=== PATIENT | female | born 1980 | race Caucasian/White ===

== ENCOUNTER 2016-11-23 17:43 | Emergency (ER) | payer OTHER ==
[~2016-11-23] VITALS: Ht 170.2 cm; Wt 56.5 kg
[~2016-11-23 17:43] MED LIST: CIPR500T4 PO; DICY1TAB26 PO; METR-1 PO
[2016-11-23 17:44] VITALS: BP 139/63; PULSE 97; RESP 20; TEMP 98.6; O2SAT 98
--- NOTE | 2016-11-23 17:55 | PD ---
Physical Exam Date Seen by Provider: Nov 23, 2016 Time Seen by Provider: 17:52 Data Data Last Documented VS Vital Signs Date Time Temp Pulse Resp B/P (MAP) Pulse Ox O2 Delivery O2 Flow Rate FiO2 11/23/16 17:44 98.6 97 20 139/63 (88) 98 Room Air MDM Supervised Visit with [facility]: No Narrative Course 36 YO F requesting detox from alcohol. Patient endorses daily drinking "4 beers." Patient states that she has been on a 6 day "fatima", last drink 1 hour ago. Endorses depression. Endorses passive SI. Vitals reviewed. Patient seen in triage, awaiting bed placement. Darcy Singer Nov 23, 2016 17:55
[2016-11-23] MEDS ORDERED: SERO200T PO (22:10)
== END 2016-11-23 19:39 | disposition left against medical advice (07) ==
LOC: NED 17:43
DX: F10.10 Alcohol abuse, uncomplicated (principal)
CPT/HCPCS: 99281

== ENCOUNTER 2016-11-23 21:20 | Emergency (ER) | payer OTHER ==
[~2016-11-23] VITALS: Ht 170.2 cm; Wt 58.0 kg
[2016-11-23 21:33] VITALS: BP 122/64; PULSE 96; RESP 16; TEMP 98.1; O2SAT 98
[2016-11-23] MEDS ORDERED: SERO200T PO (22:10)
--- NOTE | 2016-11-23 22:24 | PD ---
HPI Chief Complaint: Medical Clearance Time Seen by Provider: 22:13 Travel History International Travel<30 days: No Contact w/Intl Traveler<30days: No Traveled to known affect area: No History of Present Illness HPI The patient is a 36-year-old female alcoholic that went to [facility] today but they would not take her until she was medically cleared. When she is intoxicated she does get depressed but at this time she does not want to harm herself or others. She is accompanied by her mother. She drinks about 18 beers daily. The patient has not eaten in 3 days, her diet is poor. The last time she vomited was Tuesday and she vomited some blood. She denies any fever, nausea or vomiting since. She denies any melanotic or bloody stools. She smokes one pack a day and has not had a chest x-ray in over 2 years. She does have a history of pancreatitis but denies any abdominal pain at this time. She denies any history of hepatitis or liver disease. PFSH Past Medical History Bipolar Disorder: Yes Depression: Yes Diminished Hearing: No Tetanus Vaccination: > 5 Years Influenza Vaccination: No ?: Not LMP: 11/11/16 : 4 Para: 0 Miscarriage: 2 : 2 Past Surgical History Surgical History: No Previous Surgery Social History Alcohol Use: Yes (daily) Tobacco Use: Yes (1 ppd) Substance Use: No (denies) Allergies-Medications (Allergen,Severity, Reaction): Coded Allergies: No Known Allergies (Unverified , 11/23/16) Reported Meds & Prescriptions Reported Meds & Active Scripts Active Reported Seroquel (Quetiapine Fumarate) 200 Mg Tab 200 Mg PO HS Review of Systems Except as stated in HPI: all other systems reviewed are Neg Physical Exam Narrative GENERAL: The patient is alert, oriented 3, does not appear clinically intoxicated and is cooperative, smells only slightly of beer in no apparent distress. Her pulse rate is 96 but the rest of her vital signs are normal. SKIN: Focused skin assessment warm/dry. Old wrist slash fitch are present on the volar left wrist but there are no needle tracks and no other skin rash present. HEAD: Atraumatic. Normocephalic. EYES: Pupils equal and round. No scleral icterus. No injection or drainage. ENT: No nasal bleeding or discharge. Mucous membranes pink and moist. Tympanic membranes are clear. NECK: Trachea midline. No JVD. There is no meningismus present. CARDIOVASCULAR: Regular rate and rhythm. No murmur appreciated. RESPIRATORY: No accessory muscle use. Clear to auscultation. Breath sounds equal bilaterally. GASTROINTESTINAL: Abdomen soft, non-tender, nondistended. Hepatic and splenic margins not palpable. MUSCULOSKELETAL: No obvious deformities. No clubbing. No cyanosis. No edema. NEUROLOGICAL: Awake and alert. No obvious cranial nerve deficits. Motor grossly within normal limits. Normal speech. PSYCHIATRIC: Appropriate mood and affect; insight and judgment normal. Data Data Last Documented VS Vital Signs Date Time Temp Pulse Resp B/P (MAP) Pulse Ox O2 Delivery O2 Flow Rate FiO2 11/23/16 22:04 96 16 11/23/16 21:33 98.1 122/64 (83) 98 Orders Orders Complete Blood Count With Diff (11/23/16 22:13) Comprehensive Metabolic Panel (11/23/16 22:13) Lipase (11/23/16 22:13) Magnesium (Mg) (11/23/16 22:13) Chest, Pa & Lat (11/23/16 22:13) Alcohol (Ethanol) (11/23/16 22:13) Beta Hcg (Quant/Titer) (11/23/16 22:13) Ed Urine Pregnancytest Poc (11/23/16 22:36) Labs Laboratory Tests Test 11/23/16 22:30 White Blood Count 8.2 TH/MM3 Red Blood Count 4.62 MIL/MM3 Hemoglobin 14.6 GM/DL Hematocrit 43.3 % Mean Corpuscular Volume 93.8 FL Mean Corpuscular Hemoglobin 31.5 PG Mean Corpuscular Hemoglobin Concent 33.6 % Red Cell Distribution Width 13.1 % Platelet Count 376 TH/MM3 Mean Platelet Volume 6.7 FL Neutrophils (%) (Auto) 70.8 % Lymphocytes (%) (Auto) 22.1 % Monocytes (%) (Auto) 5.7 % Eosinophils (%) (Auto) 0.6 % Basophils (%) (Auto) 0.8 % Neutrophils # (Auto) 5.8 TH/MM3 Lymphocytes # (Auto) 1.8 TH/MM3 Monocytes # (Auto) 0.5 TH/MM3 Eosinophils # (Auto) 0.0 TH/MM3 Basophils # (Auto) 0.1 TH/MM3 CBC Comment DIFF FINAL Differential Comment Blood Urea Nitrogen 8 MG/DL Creatinine 0.70 MG/DL Random Glucose 64 MG/DL Total Protein 8.6 GM/DL Albumin 4.3 GM/DL Calcium Level 8.5 MG/DL Magnesium Level 2.3 MG/DL Alkaline Phosphatase 84 U/L Aspartate Amino Transf (AST/SGOT) 126 U/L Alanine Aminotransferase (ALT/SGPT) 78 U/L Total Bilirubin 0.5 MG/DL Sodium Level 134 MEQ/L Potassium Level 3.8 MEQ/L Chloride Level 95 MEQ/L Carbon Dioxide Level 22.6 MEQ/L Anion Gap 16 MEQ/L Estimat Glomerular Filtration Rate 94 ML/MIN Lipase 219 U/L Human Chorionic Gonadotropin, Quant LESS THAN 1 MIU/ML Ethyl Alcohol Level 230 MG/DL MDM Medical Decision Making Medical Screen Exam Complete: Yes Emergency Medical Condition: Yes Medical Record Reviewed: Yes Interpretation(s) The CBC is normal. The complete metabolic profile shows a glucose of 64, total protein of 8.6, GOT of 126, GPT of 78 with sodium 134 and anion gap of 16 but is otherwise normal. The beta-hCG is less than 1, she is not . The alcohol level is 230. Lipase is normal. The chest x-ray is normal. Differential Diagnosis Alcohol abuse, suicidal depression, electrolyte disorder, cirrhosis, alcohol hepatitis, other hepatitis, , anemia, alcohol withdrawal Narrative Course The patient has alcohol abuse. Her alcohol level is still elevated at 2:30 but she does not appear clinically intoxicated. She is medically cleared at this time. She also has hypoglycemia due to her poor diet and was given orange juice. She drank the orange juice and Gatorade. She is also given a meal to eat. Diagnosis Primary Impression: Alcohol abuse Additional Impression: Hypoglycemia Additional Instructions: As we discussed, discontinue alcohol before destroyed your liver. Follow-up with [facility]. Med/Other Pt SpecificInfo: No Change to Meds Disposition: 01 DISCHARGE HOME Condition: Stable Damaso Laird MD Nov 23, 2016 22:24
[2016-11-23 22:44] LABS: AUTOMATED NEUTROPHIL # 5.8 TH/MM3 (1.8-7.7); BASOPHIL # 0.1 TH/MM3 (0-0.2); BASOPHIL % 0.8 % (0.0-2.0); EOSINOPHIL % 0.6 % (0.0-4.0); HEMATOCRIT 43.3 % (35.0-46.0); HEMO FLAGS DIFF FINAL; LYMPH % 22.1 % (9.0-44.0); LYMPHOCYTE # 1.8 TH/MM3 (1.0-4.8); MEAN CELL VOLUME 93.8 FL (80.0-100.0); MEAN CORPUSCULAR HEMOGLOBIN 31.5 PG (27.0-34.0); MEAN CORPUSCULAR HGB CONC 33.6 % (32.0-36.0); MONO % 5.7 % (0.0-8.0); NEUT % 70.8 % (16.0-70.0); PLATELET COUNT 376 TH/MM3 (150-450); RED BLOOD COUNT 4.62 MIL/MM3 (4.00-5.30); RED CELL DISTRIBUTION WIDTH 13.1 % (11.6-17.2); WHITE BLOOD COUNT 8.2 TH/MM3 (4.0-11.0)
[2016-11-23 22:51] LABS: CHLORIDE 95 MEQ/L (98-107); POTASSIUM 3.8 MEQ/L (3.5-5.1); SODIUM (NA) 134 MEQ/L (136-145)
--- NOTE | 2016-11-23 22:52 | RADRPT ---
EXAM DATE/TIME: 11/23/2016 22:17 [place] COMPARISON: No previous studies available for comparison. INDICATIONS : Evaluate for pneumonia, pneumothorax, or other communicable disease. MEDICAL HISTORY : None. SURGICAL HISTORY : None. ENCOUNTER: Initial ACUITY: 1 day PAIN SCORE: 0/10 LOCATION: Bilateral chest FINDINGS: PA and lateral views of the chest demonstrate a normal-sized cardiac silhouette. There is no effusion , consolidation, or pneumothorax. The bones and soft tissues demonstrate no acute abnormality. CONCLUSION: Normal chest x-ray. Heraclio Paris MD on November 23, 2016 at 22:50 Board Certified Radiologist. This report was verified electronically.
[2016-11-23 22:57] LABS: ANION GAP 16 MEQ/L (5-15); BICARBONATE 22.6 MEQ/L (21.0-32.0); BLOOD UREA NITROGEN 8 MG/DL (7-18); MAGNESIUM 2.3 MG/DL (1.5-2.5)
[2016-11-23 22:59] LABS: ALT (GPT) 78 U/L (10-53); AST (GOT) 126 U/L (15-37); GLOMERULAR FILTRATION RATE 94 ML/MIN (>89)
[2016-11-23 23:01] LABS: TOTAL BILIRUBIN ADULT 0.5 MG/DL (0.2-1.0)
[2016-11-23 23:02] LABS: ALKALINE PHOSPHATASE 84 U/L (45-117)
[2016-11-23 23:05] LABS: BETA HCG QUANT LESS THAN 1 MIU/ML (0-5)
[2016-11-23 23:08] LABS: ALCOHOL 230 MG/DL (0-5)
[2016-11-23] MEDS ORDERED: THIAMINE INJ 100 MG in SODIUM CHLORIDE 0.9% INJ 100 ML IV ONE (23:30)
[2016-11-23 23:45] VITALS: BP 125/77
== END 2016-11-24 00:02 | disposition home or self-care (01) ==
LOC: PHED 21:20
DX: F10.10 Alcohol abuse, uncomplicated (principal); F17.210 Nicotine dependence, cigarettes, uncomplicated; E16.2 Hypoglycemia, unspecified; F31.9 Bipolar disorder, unspecified; Y90.7 Blood alcohol level of 200-239 mg/100 ml; Z79.899 Other long term (current) drug therapy
CPT/HCPCS: 71020; 80053; 80307; 83690; 83735; 84702; 84703; 85025; 99284